=== PATIENT | female | born 1985 | race Hispanic/Latino ===

== ENCOUNTER 2017-02-04 19:32 | Emergency (ER) | payer SELFPAY ==
[2017-02-04 20:21] VITALS: O2SAT 98
[2017-02-04] MEDS ORDERED: Sodium Chloride 0.9% 1,000 ML IV STA (20:49)
[2017-02-04 21:07] LABS: PH,URINE 7.5 (4.7-8.0); URINE APPEARANCE CLEAR (CLEAR); URINE BILIRUBIN NEGATIVE (NEGATIVE); URINE BLOOD NEGATIVE (NEGATIVE); URINE COLOR YELLOW (YELLOW); URINE GLUCOSE (UA) NEGATIVE (NEGATIVE); URINE KETONE TRACE mg/dL (NEGATIVE); URINE LEUKOCYTE ESTERASE NEGATIVE Leu/uL (NEGATIVE); URINE PROTEIN TRACE mg/dL (<30 mg/dL); URINE UROBILINOGEN 0.2 E.U./dL (<1 E.U./dL)
[2017-02-04 21:13] LABS: URINE AMORPHOUS SEDIMENT FEW; URINE BACTERIA MANY (NEG); URINE RBC 0 - 2 /hpf (0-2)
--- NOTE | 2017-02-04 21:19 | ED PDOC ---
Arrival/HPI - General Chief Complaint: Abdominal Pain Time Seen by Provider: 02/04/17 20:44 - History of Present Illness Narrative History of Present Illness (Text): 02/04/17 21:17 31yo female with 2 week duration LLQ discomfort. Pain feels like pulling. States it is positional. Denies any Gu symptoms, no vaginal pain or bleeding, no freq/burning on urination. Denies n/v/d, denies constipation. No other complaints. Past Medical History - Provider Review Nursing Documentation Reviewed: Yes - Psychiatric Hx Psychophysiologic Disorder: No Hx Substance Use: No Family/Social History Family/Social History: Unknown Family HX Smoking Status: Never Smoked Hx Alcohol Use: No Hx Substance Use: No Allergies/Home Meds Allergies/Adverse Reactions: Allergies No Known Allergies Allergy (Verified 02/04/17 20:16) Physical Exam - Physical Exam Narrative Physical Exam (Text): 02/04/17 21:15 - Review of Systems Constitutional: Normal. absent: Fatigue, Weight Change, Fevers Eyes: Normal ENT: denies sore throat, denies tristhmus Respiratory: Normal. absent: SOB, Cough, Sputum Cardiovascular: absent: Chest Pain, Palpitations, Syncope Gastrointestinal: Abdominal Pain absent: Diarrhea, Nausea, Vomiting Genitourinary: Normal. absent: Dysuria, Frequency, Hematuria, vaginal bleeding Musculoskeletal: Normal. absent: Arthralgias, Back Pain, Neck Pain Skin: no rashes, no erythema Neurological: absent: Focal Weakness Endocrine: Normal Hemo/Lymphatic: Normal Psychiatric: No suicidal or homicidal ideations Physical exam Patient appears age appropriate in no distress, speaking full sentences without difficulty - Systems Exam Head: Present: Atraumatic, Normocephalic Pupils: Present: PERRL Extroacular Muscles: Present: EOMI Conjunctiva: Present: Normal Mouth: Present: Moist Mucous Membranes Neck: Present: Normal Range of Motion. No: MIDLINE TENDERNESS, Paraspinal Tenderness Respiratory/Chest: Present: Clear to Auscultation, Good Air Exchange. No: Respiratory Distress, Accessory Muscle Use, Tachypneic Cardiovascular: Present: Regular Rate and Rhythm, Normal S1, S2, Peripheal Pulses Present. No: Murmurs Abdomen: Present: Normal Bowel Sounds. Gravid abdomen No: Tenderness, Distention , Peritoneal Signs, Rebound, Guarding Back: Present: Normal Inspection. No: Midline Tenderness, Paraspinal Tenderness Upper Extremity: Present: Normal Inspection. No: Cyanosis, Edema Lower Extremity: Present: Normal Inspection. No: Edema Neurological: Present: GCS=15, Speech Normal, cranial nerves II through XII fully intact with no cerebellar abnormality, neurosensory fully intact. No focal neurological deficits. Skin: Present: Warm, Dry, Normal Color. No: Rashes Lymphatic: Present: OX3, NI, NC Psychiatric: Present: Alert, Oriented x 3, Normal Insight, Normal Concentration Vital Signs Reviewed: Yes Vital Signs Temp Pulse Resp BP Pulse Ox 02/04/17 20:17 98.6 F 97 H 17 109/67 98 Temperature: Afebrile Blood Pressure: Normal Pulse: Regular Respiratory Rate: Normal Appearance: Positive for: Well-Appearing Pain Distress: None Mental Status: Positive for: Alert and Oriented X 3 Medical Decision Making ED Course and Treatment: 02/04/17 21:20 31yo female with positional pulling LLQ pain. Gravid abd on examination. test positive. pt refusing labs to be done. pt has been made aware of risks. US and UA ordered pt instructed to start taking vitamins pt states she's been taking NSAIDS for her pain. I instructed pt to stop taking NSAID drugs and names listed 02/04/17 23:30 FINDINGS: Fetus: Single live intrauterine with variable presentation. Heart rate measured at 142 bpm. Placenta: Anterior. No abruption. BIOMETRICS Gestational age by US: 20 weeks 6 days +/-1 week 3 days. EFW: 13 oz +/- 2 oz BPD: 5.1 cm HC: 18.7 cm AC: 15.8 cm FL: 3.3 cm MATERNAL: Uterus: Unremarkable as visualized. No myometrial mass. Cervix: Unremarkable as visualized. Closed. Measured at 4.2 cm Free fluid: No free fluid. IMPRESSION: Single live IUP as above. Limited study not performed for anatomy. Dictated and Authenticated by: Kendra Gipson MD 02/04/17 23:32 pt in no distress and denies complaints states she has no abd pain at this time, states she has no contractions, denies vaginal pain or bleeding states she feels comfortable being dc'd home with outpatient f/u Patient again refused blood work Pt states she understands to return to the ER right away for new or worsening symptoms or for inability to f/u with PMD or specialist as instructed. Patient states that she fully agrees with and understands discharge instructions. States that she agrees with the plan and disposition. Verbalized and repeated discharge instructions and plan. I have given the patient opportunity to ask any additional questions. - Lab Interpretations Lab Results: Lab Results 02/04/17 21:00: Urine Color Yellow, Urine Appearance Clear, Urine pH 7.5, Ur Specific [place] 1.020, Urine Protein Trace H, Urine Glucose (UA) Negative, Urine Ketones Trace H, Urine Blood Negative, Urine Nitrate Negative, Urine Bilirubin Negative, Urine Urobilinogen 0.2, Ur Leukocyte Esterase Negative, Urine RBC 0 - 2, Urine WBC 1 - 3, Ur Epithelial Cells 6 - 8, Amorphous Sediment Few, Urine Bacteria Many - RAD Interpretation Radiology Orders: 02/04/17 20:48 AGE [US] Stat - Medication Orders Current Medication Orders: Discontinued Medications Sodium Chloride (Sodium Chloride 0.9%) 1,000 mls @ 1,000 mls/hr IV .Q1H STA Stop: 02/04/17 21:48 Disposition/Present on Arrival - Present on Arrival Any Indicators Present on Arrival: No History of DVT/PE: No History of Uncontrolled Diabetes: No Urinary Catheter: No History of Decub. Ulcer: No History Surgical Site Infection Following: None - Disposition Have Diagnosis and Disposition been Completed?: Yes Diagnosis: Abdominal pain affecting Disposition: HOME/ ROUTINE Disposition Time: 23:33 Patient Plan: Discharge Condition: GOOD Discharge Instructions (ExitCare): Abdominal Pain in (ED) Additional Instructions: PLEASE RETURN TO THE EMERGENCY DEPARTMENT FOR NEW OR WORSENING SYMPTOMS. RETURN RIGHT AWAY IF YOU CANNOT FOLLOW UP WITH YOUR PRIMARY CARE DOCTOR, CLINIC, OR SPECIALIST IN 1-2 DAYS. PLEASE START TAKING OVER THE COUNTER VITAMINS PER PHARMACY INSTRUCTIONS Prescriptions: Nitrofurantoin Macrocrystals [Macrobid] 100 mg PO BID #10 cap Referrals: Ankit Day, [Primary Care Provider] - Follow up with primary Cam Stephen DO [Staff Provider] - [facility] - Follow up with primary
--- NOTE | 2017-02-04 23:03 | US ---
EXAM: US After First Trimester, Transabdominal. CLINICAL HISTORY: 31 years old, female; Pain; complicated by abdominal or pelvic pain; Lower; Second trimester; Gestational age or lmp: 20w6d; TECHNIQUE: Real-time transabdominal obstetrical ultrasound of the maternal pelvis and a second or third trimester with image documentation. COMPARISON: No relevant prior studies available. FINDINGS: Fetus: Single live intrauterine with variable presentation. Heart rate measured at 142 bpm. Placenta: Anterior. No abruption. BIOMETRICS Gestational age by US: 20 weeks 6 days +/-1 week 3 days. EFW: 13 oz +/- 2 oz BPD: 5.1 cm HC: 18.7 cm AC: 15.8 cm FL: 3.3 cm MATERNAL: Uterus: Unremarkable as visualized. No myometrial mass. Cervix: Unremarkable as visualized. Closed. Measured at 4.2 cm Free fluid: No free fluid. IMPRESSION: Single live IUP as above. Limited study not performed for anatomy.
[2017-02-05 00:17] VITALS: BP 123/67; PULSE 90; RESP 16; TEMP 98.5
== END 2017-02-05 00:18 | disposition home or self-care (01) ==
LOC: ED 19:32
DX: O26.92 Pregnancy related conditions, unspecified, second trimester (principal); Z3A.20 20 weeks gestation of pregnancy; R10.9 Unspecified abdominal pain